=== PATIENT | female | born 1940 | race Caucasian/White ===

== ENCOUNTER 2019-02-15 15:14 | Inpatient (IN) | payer OTHER, MEDICARE ==
[~2019-02-15] VITALS: Ht 157.5 cm; Wt 61.2 kg
[~2019-02-15 15:14] MED LIST changes: -ACET325 PO; -Aspir 8181 MG PO; -CARVEDILOL3.125 MG PO; -CEFU250T47 PO; -DOCUSATE SODIU1 EACH PO; -MIRALAX119 G1 PO; -Nortriptyline H25 MG PO; -POTA10T PO; -Percocet 5-3251 EACH PO; -Prinivil10 MG PO; -VITAMIN D310000 UNI1 PO
[2019-02-15 15:53] LABS: BASOPHILS ABSOLUTE AUTO 0.07 K/mm3 (0.00-0.23); BASOPHILS PERCENT AUTO 1 % (0-2); EOSINOPHILS ABSOLUTE AUTO 0.03 K/mm3 (0.00-0.68); EOSINOPHILS PERCENT AUTO 0 % (0-6); Hematocrit 44.6 % (33.0-51.0); Hemoglobin 14.5 g/dL (11.5-16.0); IMMATURE GRAN ABSOLUTE AUTO 0.03 K/mm3 (0.00-0.10); IMMATURE GRAN PERCENT AUTO 0 % (0-1); LYMPHOCYTES ABSOLUTE AUTO 0.76 K/mm3 (0.84-5.20); LYMPHOCYTES PERCENT AUTO 9 % (21-46); MONOCYTES ABSOLUTE AUTO 0.58 K/mm3 (0.16-1.47); MONOCYTES PERCENT AUTO 7 % (4-13); Mean Corpuscular HGB 32.8 pg (26.0-34.0); Mean Corpuscular HGB Conc 32.5 g/dL (31.5-36.5); Mean Corpuscular Volume 101 fL (80-100); Mean Platelet Volume 9.6 fL (9.1-12.4); NEUTROPHILS ABSOLUTE AUTO 6.67 K/mm3 (1.96-9.15); NEUTROPHILS PERCENT AUTO 82 % (41-73); Platelet Count 260 K/mm3 (150-400); RDW Coefficient Variation 14.2 % (11.7-14.2); RDW Standard Deviation 52.6 fL (35.1-46.3); Red Blood Cell Count 4.42 M/mm3 (3.80-5.20); White Blood Cell Count 8.14 K/mm3 (4.00-11.30)
[2019-02-15 16:21] LABS: Albumin, Blood 3.5 g/dL (3.4-5.0); Bilirubin, Total 0.6 mg/dL (0.1-1.0); Bun/Creatinine Ratio 22.2 (12.0-20.0); Calcium, Blood 9.2 mg/dL (8.5-10.1); Creatinine, Blood 1.71 mg/dL (0.40-1.00); Globulin, Blood 3.5 g/dL (2.2-4.0); Potassium, Blood 3.9 mmol/L (3.5-5.5)
[2019-02-15 17:08] LABS: Troponin I 0.686 ng/mL (0.000-0.040)
[2019-02-15] MEDS ORDERED: Aspir 8181 MG PO (18:00)
[2019-02-15] MEDS ORDERED: VITAMIN D310000 UNI1 PO (18:02)
[2019-02-15] MEDS ORDERED: CARVEDILOL3.125 MG PO (18:02)
[2019-02-15] MEDS ORDERED: Prinivil10 MG PO (18:03)
[2019-02-15] MEDS ORDERED: Nortriptyline H25 MG PO (18:04)
[2019-02-15] MEDS ORDERED: Percocet 5-3251 EACH PO (18:04)
--- NOTE | 2019-02-15 21:39 | NUR ---
UA OBTAINED AND SENT, PENDING RESULTS. PT VOIDED APPROX 700ML CONCENTRATED URINE AFTER X3 ATTEMPTS TO VOID W/O SUCCESS. BLADDER SCAN DONE TO CHECK FOR RETENTION AND PVR WAS 500 MLS. WILL ASSESS PRELIM UA RESULTS AND ALERT MD. PT DENIES ABDO/BLADDER PAIN, PRESSURE OR SENSATION OF NEEDING TO FURTHER VOID. IVF INFUSING AND TOLERATING PO LIQUIDS.
[2019-02-15 21:53] LABS: Bilirubin, Urine Neg (Neg); Blood, Urine Neg (Neg); Color, Urine Yellow (P-Yellow); Glucose Qualitative, Urine Neg (Neg); Ketones, Urine 1+ (Neg); Leukocyte Esterase, Urine 3+ (Neg); Nitrite, Urine Neg (Neg); Protein, Urine Neg (Neg); Urobilinogen, Urine NORM (Normal)
[2019-02-15 22:00] LABS: Appearance, Urine Hazy (Clear)
[2019-02-15 22:01] LABS: White Blood Cells, Urine 50-100 /hpf (0-5)
[2019-02-15 22:02] LABS: Bacteria Mod /hpf; Red Blood Cells, Urine 0-2 /hpf (0-2); Squamous Epithelial Cells Few /hpf (Few)
--- NOTE | 2019-02-15 22:17 | NUR ---
RANI (GAMES DEALER) MADE AWARE OF PVR 500 MLS AND POSSIBLE UTI PER URINE SPECIMEN. NO NEW ORDERS AT THIS TIME ACCEPT TO MONITOR FOR CONTINUED RETENTION AND ALERT MD IF REMAINS AN ISSUE. RANI SPECULATES WHETHER RETENTION MAY BE SECONDARY TO NARCOTICS D/Y PT RECENTLY ACCIDENTALLY MIXING UP PERCOCET AND OXYCONTIN DOSE FREQUENCIES. WCTM AND ALERT HOSPITALIST PRN.
--- NOTE | 2019-02-15 22:48 | NUR ---
CRITICAL TROPONIN NOW 1.05 (WAS 0.685). RANI ALERTED AND STATED IT'S LIKELY DEMAND ISCHEMIA GIVEN PT REMAINS ASYMPTOMATIC OF CARDIAC DISTRESS AND HAS DECREASED KIDNEY FUNCTION. NO NEW ORDERS RECIEVED AT THIS TIME. WILL CONTINUE TO MONITOR FOR CHANGES/WORSENING.
--- NOTE | 2019-02-16 01:17 | NUR ---
BLADDER SCAN NOW 780 MLS AFTER PT ATTEMPTED TO VOID AGAIN W/O SUCCESS. RANI (REMARKETING MANAGER) ALERTED AND NEW ORDER RECIEVED FOR KEARNEY INSERTION FOR RETENTION ISSUES W/DAY MD TO REEVALUATE CONTINUED NEED. 14FR. INDWELLING KEARNEY INSERTED AT 0110 W/STERILE TECHNIQUE MAINTAINED. PT'S LOIDA AREA APPEARS PINK AND SWOLLEN W/PT REPORT OF TENDERNESS R/T SHINGLES. SHE HAD DIFFICULTY RELAXING AND GETTING INTO POSITION FOR KEARNEY INSERTION R/T PELVIC PAIN SO X3 STAFF WERE REQUIRED AND KEARNEY INSERTION WASN'T EASY. URINE SPECIMEN WAS OBTAINED AND SENT PER PROTOCOL. PT REPORTED SOME RELIEF W/BLADDER DECOMPRESSION. WCTM CLOSELY.
[2019-02-16 01:20] LABS: Source, Urine Catheter
[2019-02-16 01:23] LABS: Appearance, Urine Clear (Clear); Bilirubin, Urine Neg (Neg); Blood, Urine 1+ (Neg); Color, Urine Yellow (P-Yellow); Glucose Qualitative, Urine Neg (Neg); Ketones, Urine Neg (Neg); Leukocyte Esterase, Urine Neg (Neg); Nitrite, Urine Neg (Neg); Protein, Urine Neg (Neg); Specific Gravity, Urine 1.015 (1.003-1.022); Urobilinogen, Urine NORM (Normal)
[2019-02-16 01:31] LABS: Red Blood Cells, Urine 0-2 /hpf (0-2); Squamous Epithelial Cells Not Seen /hpf (Few); White Blood Cells, Urine 0-2 /hpf (0-5)
[2019-02-16 01:32] LABS: Bacteria Few /hpf
--- NOTE | 2019-02-16 04:07 | NUR ---
SUMMARY: A/OX4 BUT FORGETFUL AT TIMES AND HAS SET OFF BED ALARM TO USE TOILET. SHE'D HAD DIFFICULTY VOIDING, ONLY SUCCESSFULLY GOING ONCE W/MULTI FAILED ATTEMPTS AND RETENTION OBSERVED. BLADDER SCANS SHOWED 500-780 MLS RETAINED. RANI MADE AWARE W/KEARNEY RX'D AND INSERTED FOR SOME IMPROVEMENT IN PELVIC PAIN. 2ND UA OBTAINED AND SENT POST KEARNEY INSERTION AND NO S/S UTI OBSERVED. SHE WAS MEDICATED W/OXYCODONE X2 DOSES AND TYLENOL X1 DOSE FOR PERSISTENT GROIN PAIN SHE RELATES TO SHINGLES. PT ALSO REPORTED THAT LOIDA AREA IS PINK, SWOLLEN AND TENDER R/T POST HERPATIC ISSUES FROM SHINGLES, NO ACTIVE OUTBREAK OBSERVED. TROPONINS INCREASED THIS SHIFT, NOW 1.05 (WAS 0.685) BUT RANI STATED IT WAS LIKELY DEMAND ISCHEMIA R/T DEHYDRATION, DECREASED RENAL FUNCTION AND PT REMAINING ASYMPTOMATIC OF CARDIAC DISTRESS W/NORMAL EKG IN ER. IVF INFUSING AND PO FLUIDS ENCOURAGED. CLONUS WAS ALSO OBSERVED TO X4 EXT'S. SHE REPORTS THIS IS NEW POST FALLING AT HOME BUT CT'S WERE (-) FOR ACUTE FINDINGS. IT APPEARS WORSE W/AMBULATION W/PT REPORTING LEGS "FEEL LIKE BUCKLING" AND "PRINCIPAL CLERK GIVE OUT". 2P ASSIST W/FWW AND GAIT BELT UTILISED AND FALL PREC'S IN PLACE. RANI MADE AWARE OF THESE OBSERVATIONS AND NO NEW ORDERS WERE RECIEVED EXCEPT TO ENSURE DAY STAFF ARE AWARE. BP WAS STABLE T/O NOCTE, WAS SBP 100'S-130'S BUT NOW SBP 90'S THIS AM. SHE'S DENIED BEING LIGHTHEADED/DIZZY THOUGH AND HAS BEEN ASYMPTOMATIC OF ANY POSSIBLE ORTHO HYPOTENSION. PT REMAINS NSR W/HR 70'S-80'S BPM PER TELEMETRY. NO ACUTE CHANGES, VSS/AFEBRILE. WCTM AND REPORT TO DAY RN.
[2019-02-16 04:59] LABS: Hematocrit 36.3 % (33.0-51.0); Hemoglobin 11.7 g/dL (11.5-16.0); Mean Corpuscular HGB 32.8 pg (26.0-34.0); Mean Corpuscular HGB Conc 32.2 g/dL (31.5-36.5); Mean Corpuscular Volume 102 fL (80-100); Mean Platelet Volume 9.5 fL (9.1-12.4); Platelet Count 209 K/mm3 (150-400); RDW Coefficient Variation 14.3 % (11.7-14.2); RDW Standard Deviation 53.2 fL (35.1-46.3); Red Blood Cell Count 3.57 M/mm3 (3.80-5.20); White Blood Cell Count 6.47 K/mm3 (4.00-11.30)
[2019-02-16 05:20] LABS: Bun/Creatinine Ratio 20.8 (12.0-20.0); Calcium, Blood 7.8 mg/dL (8.5-10.1); Creatinine, Blood 1.3 mg/dL (0.40-1.00); Potassium, Blood 3.3 mmol/L (3.5-5.5)
--- NOTE | 2019-02-16 19:19 | NUR ---
SHIFT SUMMARY PT UP TO BATHROOM WITH 1 PERSON ASSIST USING FWW. REPORTS PAIN TO GROIN AREA AND "INSIDE MY PEE HOLE" REPORTS PAIN IS CHRONIC. FAMILY AT BEDSIDE PART OF THE DAY. STATES ITS VERY HARD TO SIT UP DUE TO PAIN AND THE BED IS UNCOMFORTABLE DESPITE AN EGG CRATE PLACED FOR COMFORT SO IT IS HARD TO GET A COMFORTABLE POSITION. HOPES TO GO HOME TOMORROW. DENIES FEELING DIZZY OR LIGHTHEADED WITH SITTING UP.
[2019-02-17 04:42] LABS: BASOPHILS ABSOLUTE AUTO 0.05 K/mm3 (0.00-0.23); BASOPHILS PERCENT AUTO 1 % (0-2); EOSINOPHILS ABSOLUTE AUTO 0.16 K/mm3 (0.00-0.68); EOSINOPHILS PERCENT AUTO 3 % (0-6); Hematocrit 39.3 % (33.0-51.0); Hemoglobin 12.7 g/dL (11.5-16.0); IMMATURE GRAN ABSOLUTE AUTO 0.02 K/mm3 (0.00-0.10); IMMATURE GRAN PERCENT AUTO 0 % (0-1); LYMPHOCYTES ABSOLUTE AUTO 0.71 K/mm3 (0.84-5.20); LYMPHOCYTES PERCENT AUTO 13 % (21-46); MONOCYTES ABSOLUTE AUTO 0.61 K/mm3 (0.16-1.47); MONOCYTES PERCENT AUTO 11 % (4-13); Mean Corpuscular HGB 32.8 pg (26.0-34.0); Mean Corpuscular HGB Conc 32.3 g/dL (31.5-36.5); Mean Corpuscular Volume 102 fL (80-100); Mean Platelet Volume 9.6 fL (9.1-12.4); NEUTROPHILS ABSOLUTE AUTO 4.09 K/mm3 (1.96-9.15); NEUTROPHILS PERCENT AUTO 73 % (41-73); Platelet Count 208 K/mm3 (150-400); RDW Coefficient Variation 14.2 % (11.7-14.2); RDW Standard Deviation 52.8 fL (35.1-46.3); Red Blood Cell Count 3.87 M/mm3 (3.80-5.20); White Blood Cell Count 5.64 K/mm3 (4.00-11.30)
[2019-02-17 05:16] LABS: Alanine Aminotransfer (ALT/SGP 33 U/L (12-78); Albumin, Blood 2.8 g/dL (3.4-5.0); Alk Phos 48 U/L (50-136); Anion Gap 6 mmol/L (6-16); Aspartate Aminotrans (AST/SGOT 40 U/L (12-37); Bilirubin, Total 0.2 mg/dL (0.1-1.0); Blood Urea Nitrogen 12 mg/dL (8-24); Bun/Creatinine Ratio 13.6 (12.0-20.0); CO2, Blood 21 mmol/L (21-32); Calcium, Blood 8.3 mg/dL (8.5-10.1); Chloride, Blood 119 mmol/L (98-108); Creatinine, Blood 0.88 mg/dL (0.40-1.00); Globulin, Blood 2.7 g/dL (2.2-4.0); Glomerular Filtration Rate >60 (60-); Glucose, Blood 87 mg/dL (70-99); Potassium, Blood 3.5 mmol/L (3.5-5.5); Sodium, Blood 146 mmol/L (136-145); Total Protein, Blood 5.5 g/dL (6.4-8.2); Troponin I 0.438 ng/mL (0.000-0.040)
--- NOTE | 2019-02-17 06:00 | NUR ---
SHIFT SUMMARY A/O, ABLE TO MAKE NEEDS KNOWN. COOPERATIVE WITH CARE. CALLS AND ANSWERS QUESTIONS APPROPRIATLEY. C/O PAIN/DISCOMFORT X1; MEDICATED PER EMAR. APPEARED TO REST MUCH OF SHIFT. NO ACUTE CHANGES OVERNIGHT. TELE RUNNING SR @ 68 PER PCU PYTHON CONSULTANT. BED REAMINS IN LOWEST POSITION. CALL LIGHT AND BELONINGS WITHIN REACH. WCTM. REPORT TO ONCYIMI RN.
[2019-02-17 13:16] LABS: Influenza A Negative (NEGATIVE); Influenza B Negative (NEGATIVE)
--- NOTE | 2019-02-17 18:02 | NUR ---
CRISTIAN SUMMARY PT UPSET THIS AFTERNOON AND IN TEARS WHEN SHE REALIZED MD WANTED TO KEEP HER ANOTHER NIGHT DESPITE BEING TOLD THIS MORNING BY MD SHE WAS STAYING ANOTHER NIGHT. CONTINUES TO HAVE PAIN TO GROIN AREA AND INTERNALLY WHICH IS HARD TO FIND A COMFORTABLE SPOT ON HER BED. STARTED HER OXYCONTIN AT NOON. APPEARS LESS DISTRESSED BUT REPORTS PAIN REMAINS THE SAME. MD NOTIFIED OF BLOOD PRESSURES REMAINING HIGH DESPITE MEDS. NEW ORDERS GIVEN. KEARNEY REMOVED THIS MORNING AND HAS BEEN VOIDING WELL SINCE. BLADDER SCANNED TWICE POST VOIDS WITH 203 AND 173 RESPECTIVELY. REPORTS NO DIFFICULTY URINATING OR FEELING LIKE SHE ISN'T EMPTYING HER BLADDER FULLY.
[2019-02-18 05:18] LABS: BASOPHILS ABSOLUTE AUTO 0.05 K/mm3 (0.00-0.23); BASOPHILS PERCENT AUTO 1 % (0-2); EOSINOPHILS PERCENT AUTO 1 % (0-6); Hematocrit 44.5 % (33.0-51.0); Hemoglobin 14.9 g/dL (11.5-16.0); IMMATURE GRAN ABSOLUTE AUTO 0.02 K/mm3 (0.00-0.10); IMMATURE GRAN PERCENT AUTO 0 % (0-1); LYMPHOCYTES ABSOLUTE AUTO 0.61 K/mm3 (0.84-5.20); LYMPHOCYTES PERCENT AUTO 6 % (21-46); MONOCYTES ABSOLUTE AUTO 0.95 K/mm3 (0.16-1.47); MONOCYTES PERCENT AUTO 9 % (4-13); Mean Corpuscular HGB 33.2 pg (26.0-34.0); Mean Corpuscular HGB Conc 33.5 g/dL (31.5-36.5); Mean Platelet Volume 9.7 fL (9.1-12.4); NEUTROPHILS ABSOLUTE AUTO 8.64 K/mm3 (1.96-9.15); NEUTROPHILS PERCENT AUTO 83 % (41-73); Platelet Count 220 K/mm3 (150-400); RDW Coefficient Variation 13.5 % (11.7-14.2); RDW Standard Deviation 49.6 fL (35.1-46.3); Red Blood Cell Count 4.49 M/mm3 (3.80-5.20); White Blood Cell Count 10.37 K/mm3 (4.00-11.30)
[2019-02-18 05:22] LABS: Mean Corpuscular Volume 99 fL (80-100)
[2019-02-18 05:46] LABS: Alanine Aminotransfer (ALT/SGP 36 U/L (12-78); Albumin/Globulin Ratio 0.9 (0.8-1.8); Alk Phos 58 U/L (50-136); Anion Gap 6 mmol/L (6-16); Aspartate Aminotrans (AST/SGOT 43 U/L (12-37); Bilirubin, Total 0.4 mg/dL (0.1-1.0); Blood Urea Nitrogen 6 mg/dL (8-24); Bun/Creatinine Ratio 8.3 (12.0-20.0); CO2, Blood 26 mmol/L (21-32); Calcium, Blood 8.5 mg/dL (8.5-10.1); Chloride, Blood 107 mmol/L (98-108); Creatinine, Blood 0.72 mg/dL (0.40-1.00); Globulin, Blood 3.2 g/dL (2.2-4.0); Glomerular Filtration Rate >60 (60-); Glucose, Blood 111 mg/dL (70-99); Potassium, Blood 3.2 mmol/L (3.5-5.5); Sodium, Blood 139 mmol/L (136-145); Total Protein, Blood 6.2 g/dL (6.4-8.2)
--- NOTE | 2019-02-18 07:27 | NUR ---
SHIFT SUMMARY A/O, ABLE TO MAKE NEEDS KNOWN. COOPERATIVE WITH CARE. CALLS AND ANSWERS QUESTIONS APPROPRIATELY. C/O PAIN/DISCOMFORT TO GROIN RATED 7/10; MEDICATED PER EMAR. APPEARED TO REST MUCH OF NIGHT. UP INDEPENDENTLY WITH FWW TO BATHROOM; STEADY GAIT. HYPERTENSIVE THIS AM; MEDICATED WITH ATIVAN, WHICH APPEARED TO HAVE HELPED. ALL OTHER VITALS WNL. BED IN LOWEST POSITION. CALL LIGHT AND BELONGINGS WITHIN REACH. CONTINUED TO MONITOR OVERNIGHT. REPORT GIVEN TO ONCOMING RN.
[2019-02-18] MEDS ORDERED: ACET325 PO (11:25)
[2019-02-18] MEDS ORDERED: DOCUSATE SODIU1 EACH PO (11:26)
[2019-02-18] MEDS ORDERED: CEFU250T47 PO (11:27)
[2019-02-18] MEDS ORDERED: MIRALAX119 G1 PO (11:27)
[2019-02-18] MEDS ORDERED: POTA10T PO (11:28)
--- NOTE | 2019-02-18 13:08 | NUR ---
SHIFT SUMMARY/DC PT HAS HAD NO ACUTE CHANGES THIS SHIFT, MEDICATED PER MAR FOR PAIN, REVIEWED DC INSTRUCTIONS W/PT & SPOUSE, BOTH VERBALIZED UNDERSTANDING, PT WAS TRANSPORTED VIA W/C TO DC IN PRIVATE VEHICLE @ 1230.
== END 2019-02-18 12:42 | disposition home or self-care (01) | DRG 280 ==
LOC: ER 15:14 → MEDS 15:15
PROVIDERS: Internal Medicine; Nurse Practitioner Acute Care; Physician Assistant; ADMIT Family Medicine
DX: I95.1 Orthostatic hypotension (principal); J18.9 Pneumonia, unspecified organism; I21.A1 Myocardial infarction type 2; N17.9 Acute kidney failure, unspecified; F11.20 Opioid dependence, uncomplicated; J98.11 Atelectasis; E86.9 Volume depletion, unspecified; I12.9 Hypertensive chronic kidney disease with stage 1 through stage 4 chronic kidney disease, or unspecified chronic kidney disease; R82.71 Bacteriuria; G89.4 Chronic pain syndrome; I67.9 Cerebrovascular disease, unspecified; F17.210 Nicotine dependence, cigarettes, uncomplicated; W19.XXXA Unspecified fall, initial encounter; T40.605A Adverse effect of unspecified narcotics, initial encounter; N18.2 Chronic kidney disease, stage 2 (mild); G31.84 Mild cognitive impairment of uncertain or unknown etiology; B96.5 Pseudomonas (aeruginosa) (mallei) (pseudomallei) as the cause of diseases classified elsewhere
CPT/HCPCS: 36415; 70450; 71045; 71046; 72125; 74176; 80048; 80053; 81001; 83605; 83735; 84484; 85025; 85027; 85379; 87040; 87077; 87086; 87186; 87804; 93005; 93010; 93306; 96360; 96361; 96372; 96374; 96376; 97116; 97162; 97165; 97530; 97535; 99285-25; G0378; J0696; J1650; J7030; J7040

== ENCOUNTER → 2019-02-15 | Outpatient (CLI) | payer OTHER, MEDICARE ==
[~2019-02-15] MED LIST: ACET325 PO; ACYC800 PO; ANTIVIRAL; ASCO500 PO; Aspir 8181 MG PO; B Complex-Foli1 EACH PO; CARVEDILOL3.125 MG PO; CEFU250T47 PO; CYCL10 PO; DOCUSATE SODIU1 EACH PO; GABAPENTIN600 MG PO; GLUCHON PO; LEVFLO500 PO; LIDO5TO TOP; MIRALAX119 G1 PO; NAPR500 PO; NITR100CA PO; NORT10 PO; Nortriptyline H25 MG PO; ONDA4ODT MM; OXYACE5T PO; OXYC10ER PO; OXYC5 PO; POTA10T PO; PROM25 PO; Percocet 5-3251 EACH PO; Prinivil10 MG PO; THERA1 EACH PO; VITAMIN D310000 UNI1 PO
[2019-02-15 16:08] LABS: BASOPHILS ABSOLUTE AUTO 0.08 K/mm3 (0.00-0.23); BASOPHILS PERCENT AUTO 1 % (0-2); EOSINOPHILS ABSOLUTE AUTO 0.04 K/mm3 (0.00-0.68); EOSINOPHILS PERCENT AUTO 0 % (0-6); Hematocrit 43.9 % (33.0-51.0); Hemoglobin 14.7 g/dL (11.5-16.0); IMMATURE GRAN ABSOLUTE AUTO 0.04 K/mm3 (0.00-0.10); IMMATURE GRAN PERCENT AUTO 0 % (0-1); LYMPHOCYTES ABSOLUTE AUTO 0.81 K/mm3 (0.84-5.20); LYMPHOCYTES PERCENT AUTO 9 % (21-46); MONOCYTES ABSOLUTE AUTO 0.65 K/mm3 (0.16-1.47); MONOCYTES PERCENT AUTO 7 % (4-13); Mean Corpuscular HGB 33.1 pg (26.0-34.0); Mean Corpuscular HGB Conc 33.5 g/dL (31.5-36.5); Mean Corpuscular Volume 99 fL (80-100); NEUTROPHILS ABSOLUTE AUTO 7.56 K/mm3 (1.96-9.15); NEUTROPHILS PERCENT AUTO 82 % (41-73); Platelet Count 286 K/mm3 (150-400); RDW Coefficient Variation 14.3 % (11.7-14.2); RDW Standard Deviation 51.9 fL (35.1-46.3); Red Blood Cell Count 4.44 M/mm3 (3.80-5.20); White Blood Cell Count 9.18 K/mm3 (4.00-11.30)
[2019-02-15 16:18] LABS: Albumin, Blood 3.7 g/dL (3.4-5.0); Albumin/Globulin Ratio 1.1 (0.8-1.8); Bilirubin, Total 0.6 mg/dL (0.1-1.0); Bun/Creatinine Ratio 18.3 (12.0-20.0); Calcium, Blood 10.1 mg/dL (8.5-10.1); Creatinine, Blood 2.18 mg/dL (0.40-1.00); Globulin, Blood 3.4 g/dL (2.2-4.0); Potassium, Blood 4.1 mmol/L (3.5-5.5); Total Protein, Blood 7.1 g/dL (6.4-8.2)
== END ==
LOC: LAB SHORT 16:04 → LAB EV 16:04
PROVIDERS: Physician Assistant
DX: G81.90 Hemiplegia, unspecified affecting unspecified side (principal)
CPT/HCPCS: 80053; 85025

== ENCOUNTER → 2021-03-09 | Outpatient (CLI) | payer OTHER, MEDICARE ==
[~2021-03-09] MED LIST changes: +ACET325 PO; +Aspir 8181 MG PO; +CARVEDILOL3.125 MG PO; +CEFU250T47 PO; +DOCUSATE SODIU1 EACH PO; +MIRALAX119 G1 PO; +Nortriptyline H25 MG PO; +POTA10T PO; +Percocet 5-3251 EACH PO; +Prinivil10 MG PO; +VITAMIN D310000 UNI1 PO
[2021-03-09 10:55] LABS: Source, Urine Clean Catch
[2021-03-09 11:07] LABS: Appearance, Urine Cloudy (Clear); Bilirubin, Urine Neg (Neg); Blood, Urine Neg (Neg); Color, Urine Yellow (P-Yellow); Glucose Qualitative, Urine Neg (Normal); Ketones, Urine Neg (Neg); Leukocyte Esterase, Urine Neg (Neg); Nitrite, Urine Neg (Neg); Protein, Urine Neg (Neg); Urobilinogen, Urine NORM (Normal)
[2021-03-09 11:08] LABS: Bacteria Not Seen /hpf; Calcium Oxalate Crystals Many /hpf; Red Blood Cells, Urine Not Seen /hpf (0-2); Squamous Epithelial Cells Mod /hpf (Few); White Blood Cells, Urine Not Seen /hpf (0-5)
== END | disposition home or self-care (01) ==
LOC: LAB SHORT 09:00
PROVIDERS: Family Medicine
DX: R35.0 Frequency of micturition (principal)
CPT/HCPCS: 81001

== ENCOUNTER 2021-09-06 18:59 | Inpatient (IN) | payer OTHER, MEDICARE ==
[~2021-09-06] VITALS: Ht 157.5 cm; Wt 62.8 kg
[~2021-09-06 18:59] MED LIST changes: -B Complex-Foli1 EACH PO; -DOCUSATE SODIU1 EACH PO; +DOCUZEN 8.6-501 EACH PO; +MULVITA PO; -THERA1 EACH PO; -VITAMIN D310000 UNI1 PO; +VITAMIN D5000 UNIT PO; +Vitamin B Comple1 EA PO
[2021-09-06 19:30] LABS: BASOPHILS ABSOLUTE AUTO 0.04 K/mm3 (0.00-0.23); BASOPHILS PERCENT AUTO 0 % (0-2); EOSINOPHILS PERCENT AUTO 0 % (0-6); Hematocrit 48.9 % (33.0-51.0); Hemoglobin 15.8 g/dL (11.5-16.0); IMMATURE GRAN ABSOLUTE AUTO 0.08 K/mm3 (0.00-0.10); IMMATURE GRAN PERCENT AUTO 0 % (0-1); LYMPHOCYTES ABSOLUTE AUTO 0.58 K/mm3 (0.84-5.20); LYMPHOCYTES PERCENT AUTO 3 % (21-46); MONOCYTES ABSOLUTE AUTO 1.27 K/mm3 (0.16-1.47); MONOCYTES PERCENT AUTO 7 % (4-13); Mean Corpuscular HGB 28.1 pg (26.0-34.0); Mean Corpuscular HGB Conc 32.3 g/dL (31.5-36.5); Mean Corpuscular Volume 87 fL (80-100); Mean Platelet Volume 10.5 fL (9.1-12.4); NEUTROPHILS ABSOLUTE AUTO 16.58 K/mm3 (1.96-9.15); NEUTROPHILS PERCENT AUTO 90 % (41-73); Platelet Count 420 K/mm3 (150-400); RDW Standard Deviation 50.9 fL (35.1-46.3); Red Blood Cell Count 5.62 M/mm3 (3.80-5.20); White Blood Cell Count 18.55 K/mm3 (4.00-11.30)
[2021-09-06 19:42] LABS: Albumin, Blood 3.4 g/dL (3.4-5.0); Albumin/Globulin Ratio 0.7 (0.8-1.8); Bilirubin, Total 0.5 mg/dL (0.1-1.0); Calcium, Blood 9.9 mg/dL (8.5-10.1); Creatinine, Blood 1.31 mg/dL (0.40-1.00); Globulin, Blood 4.6 g/dL (2.2-4.0); Potassium, Blood 3.2 mmol/L (3.5-5.5)
[2021-09-06 20:33] LABS: Source, Urine Straight Cath
[2021-09-06 20:39] LABS: Bilirubin, Urine Neg (Neg); Blood, Urine 5+ (Neg); Glucose Qualitative, Urine Neg (Neg); Ketones, Urine Neg (Neg); Leukocyte Esterase, Urine 1+ (Neg); Nitrite, Urine Neg (Neg); Protein, Urine 3+ (Neg); Specific Gravity, Urine 1.025 (1.003-1.022); Urobilinogen, Urine NORM (Normal)
[2021-09-06 20:43] LABS: Thyroid Stimulating Hormone 2.87 uIU/mL (0.360-4.800)
[2021-09-06 20:47] LABS: Appearance, Urine Hazy (Clear); Color, Urine Pale Yellow (P-Yellow)
[2021-09-06 20:50] LABS: Amorphous Light (0-Heavy); Granular Casts 0-2 /lpf (0); Hyaline Casts 0-2 /lpf (0-2)
[2021-09-06 20:52] LABS: Bacteria Many /hpf; Red Blood Cells, Urine 0-2 /hpf (0-2); Squamous Epithelial Cells Rare /hpf (Few)
[2021-09-06 20:55] LABS: U Amphetamine Screen Not Detected; U Barbituate Screen Not Detected; U Benzodiazapine Screen Not Detected; U Cocaine Screen Not Detected; U Methamphetamine Screen Not Detected
[2021-09-06 20:56] LABS: U Buprenorphine Screen Not Detected; U Cannabinoids Screen Not Detected; U Methadone Screen Not Detected; U Opiates Screen Not Detected; U Oxycodone Screen Not Detected; U Phencyclidine Screen Not Detected; U Propoxyphene Screen Not Detected
[2021-09-06 21:00] LABS: Creatine Kinase MB 7.4 ng/mL (0.0-3.6)
[2021-09-06 21:05] LABS: Creatine Kinase MB Index 0.5 (0.0-4.0)
[2021-09-06 21:19] LABS: Influenza A, PCR NEGATIVE (NEGATIVE); Influenza B, PCR NEGATIVE (NEGATIVE); Resp Syncytial Virus, PCR NEGATIVE (NEGATIVE); SARS-Cov-2 (COVID-19) PCR, MMC NEGATIVE (NEGATIVE)
[2021-09-07 06:18] LABS: Bun/Creatinine Ratio 33.8 (12.0-20.0); Calcium, Blood 8.9 mg/dL (8.5-10.1); Creatinine, Blood 0.89 mg/dL (0.40-1.00); Potassium, Blood 2.9 mmol/L (3.5-5.5)
--- NOTE | 2021-09-07 18:26 | NUR ---
DISCUSSIONS THIS MORNING ABOUT COMFORT CARE NOTICE ON THE POLST. FAMILY AND DOCTOR DDISCUSSED. MOVED TO COMFORT CARE STATUS, WITH SOME MEDS. CURRENTLY ABX AND FLUIDS WITH K+. PT WAS BATHED TODAY. ABLE TO REMOVE MUCH OF SCALEY DIRTY SKIN. STILL VERY RED LOIDA AND GROIN AREA. FAMILY IN ROOM MOST OF DAY. PAIN PATCH PLACED ON RT FROMT SHOULDER. NO OTHER CONCERNS NOTED. BED IN LOW POSITION, CALL LITE IN REACH, BED ALARM ON FOR BRADLY
[2021-09-07] MEDS ORDERED: NORTRIPTYLINE H2511 PO (20:34)
--- NOTE | 2021-09-08 05:52 | NUR ---
MATHEMATICS EDUCATION PROFESSOR SUMMARY PT IS DNR/COMFORT CARE. SHE HAS LITTLE MOTIVATION TO DO ANYTHING AND REFUSED MOST OF HER PM MEDS. SHE IS VERY RESISTANT TO CARE. SISTER STAYED AT BEDSIDE. PT IS INCONTINENT - ATTENDS IN PLACE. SHE ADMITS TO PAIN BUT REFUSES TO TAKE ANY MEDICATION. 1/2 NS WITH POTASSIUM CONTINUOUS INFUSION.
--- NOTE | 2021-09-08 10:11 | NUR ---
Pt lying on right side, bed flat. I do not see nonverbal indicators of pain, anxiety, agitation or distress. Family report that pt is refusing all PO meds and only taking bites of food at meal time and sips of fluid. Pt did not wake to conversation near her. Two family members at bedside. They deny needs. Spent some time educating on nonverbal pain indicators to report. Pt has a duragesic patch on with increase in dose yesterday. Family states pt doesn't report specific or localized pain but says she feels "like crap all over", at times. Pal Care to follow for s/s management.
--- NOTE | 2021-09-08 11:30 | NUR ---
PT SHAN GAGGING ON SPUTUM, FAMILY CALLED ME TO ROOM. THEY ARE ASSITING HER WITH SPITTING IN KLEENEX. SET UP SUCTION FOR PT TO CLEAR SIDE AND AROUND HER MOUTH BETTER. PT OBJECTED AND TOLD ME TO STOP. WAS ABLE TO CLEAR SOME THICK MUCOUS BEFORE PT OBJECTED. PT HAS SCAPOLOMINE PATCH. AFTER MOUTH CLEARED, ASSISTED PT TO SIP WATER. RESTING MORE COMFORTABLY NOW. BED IN LOW POSITION, CALL LITE IN REACH, BED ALARM ON FOR SAFETY, FAMILY AT BEDSIDE.
--- NOTE | 2021-09-08 15:04 | NUR ---
PT AGREED TO ADDITIONAL PAIN MED. HAS BEEN ADAMENTLY REFUSING, BUT NOW AGREES TO TRY. MORPHINE SHOWS ALLERGY, DIARRHEA. SPOKE TO FAMILY AND TO PT. DENIES ANY ADVERSE REACTION. SPOKE TO DR LAWLER. HE OKAYED TO GIVE.
--- NOTE | 2021-09-08 18:09 | NUR ---
PT ON COMFORT CARE, FAMILY AT BEDSIDE T/O DAY. PT FINALLY AGREED TO ACCEPT SOME ADDL PAIN MED, ROXANOL STARTED. FIRST DOSE 5 MG. 2ND DOSE 10 MG. THIS PROVIDES BETTER COVERAGE. AFTER LAST DOSE, HAS BEEN RESTING COMFORTABLY. STILL TURNS SELF REGULARLY IN BED. AWAKENS TO TALKING OR LIGHT TOUCH. RESP NOW EASY, UNLABORED. FAMILY STATES SHE BEGAN TO TALK MORE CLEARLY THIS DK. BED IN LOW POSITION, CALL LITE IN REACH, BED ALARM ON FOR SAFETY
--- NOTE | 2021-09-09 08:06 | NUR ---
PT IN PAIN. PT UNABLE TO SWALLOW PILLS. IMEDIATELY THREW UP. ABLE TO GIVE WITH WATER. EDUCATED PT ABOUT PAIN AND NAUSEA PILLS. MADE A PLAN FOR THE NIGHT. SPOKE WITH PATIENTS FAMMILY.
--- NOTE | 2021-09-09 08:11 | NUR ---
PT STATING SHE IS IN PAIN. EXPAINED TO PT AND FAMILY THE DIFFERENCE BETWEEN A SCHEDULED AND PRN MED. EXPLAINED TO FAMILY THAT MORE MEDS OF THE PATIENTS WILL NOW BE LIQUID TO HELP HER TAKE THEM. PT STATED THEY UNDERSTOOD. RECHECKED ON PATIENT. PT STATED THAT CURRENT DOSAGE OF ROXANOL IS NOT ENOUGH. LET DAY SHIFT AWARE OF THIS.
--- NOTE | 2021-09-09 14:36 | NUR ---
SHIFT SUMMARY PT RESTING QUIETLY DURING SHIFT REPORT. SISTER AT BS. CURRENTLY ON COMFORT CARE. PT NO LONGER ABLE TO SWALLOW PILLS AND REFUSING TO EAT. INCONTINENT OF BOWEL AND BLADDER. BED BATH GIVEN AND LINEN CHANGED TODAY. MULTIPLE FAMILY IN AND OUT TODAY. MEDICATED FOR C/O PAIN "EVERYWHERE", PER PT AND FAMILY REQUEST. PT TO D/C ON HOSPICE WHEN ARRANGEMENTS MADE. PT SLEPT MOST OF THE DAY TODAY, NOT WANTING TO BE BOTHERED. CALL LT IN REACH.
--- NOTE | 2021-09-09 23:34 | NUR ---
PT irritable startles easily & I found her Fentanyl patch 50 mcg on floor. called MD for 1 x patch order due to narcotic dependant PT on comfort care. DR Yeh gives additional 1 time order. Family at bedside supportive.
--- NOTE | 2021-09-10 02:10 | NUR ---
PT was highly agitated after I found she was missing her 50 mcg duragesic patch. New patch applied & secured. Medicated with roxinol 20 mg sl several times but PT continued agitated until I gave haldol 2 mg IV. Now resting quietly with Sister at bedside.
--- NOTE | 2021-09-10 16:07 | NUR ---
SHIFT SUMMARY PT HAS BEEN SLEEPING SINCE PRIOR TO START OF SHIFT. PT MEDICATED FOR PAIN AND ANXIETY ON POULTRY PICKER, PER PT REQUEST. PT HAS NOT SHOWN ANY S/SX'S OF PAIN OR DISTRESS TO PRESENT. SOME FAMILY HAVE REMAINED IN RM ALL NIGHT AND DAY, AT LEAST SINCE YESTERDAY. PT HAS NOT WOKE TO VERBAL STIMULI OR TO REPOSITIONING. WILL CONTINUE TO MONITOR. FAMILY HAS DENIED NEEDS TO PRESENT.
--- NOTE | 2021-09-10 20:42 | NUR ---
PT opening eyes slightly to voice & touch but minimally responsive since around midnight when aggitation was relieved with rx & new duragesic patch after other patch found on floor bruna narcotic dependent PT. Family at bedside supportive. No oral intake attends dry with Q 2 hr turns .
--- NOTE | 2021-09-11 15:13 | NUR ---
SHIFT SUMMARY COMFORT CARE PT REMAINS NON-RESPONSIVE AGAIN TODAY. BREATHING E/U TO PRESENT. MEDICATED PER FAMILY, FOR POSSIBLE PAIN. NO S/SX'S OF DISTRESS NOTED. DR LAWLER TO TO ASSESS PT AND TALK WITH FAMILY. WILL CONTINUE TO MONITOR.
--- NOTE | 2021-09-11 19:32 | NUR ---
PT resting comfortably with eyes closed. HOB up , room air. Multiple family at bedside.
--- NOTE | 2021-09-12 06:52 | NUR ---
pt CONTINUES WITH PERIODS OF APNEA & NO VERBAL RESPONSE. APPEARS COMFORTABLE. SISTER AT BEDSIDE & SUPPORTIVE.
--- NOTE | 2021-09-12 07:43 | NUR ---
pt has eyes open non verbal. pt repositioned and changed. family at the bedside. pt appears to be comfortable at this time
--- NOTE | 2021-09-12 11:20 | NUR ---
REPOSITIONED THE PATIENT. GAVE ROXINOL FOR PAIN PER FAMILY REQUEST. FENTENYL PATCH REPLACED
--- NOTE | 2021-09-12 15:03 | NUR ---
PT REPOSITIONED. PT MEDICATED FOR PAIN. PT HAS PERIODS OF APNEA. FAMILY IS AT THE BEDSIDE
--- NOTE | 2021-09-12 15:05 | NUR ---
PT APPEARS TO BE COMFOERTABLE AT THIS TIME. PTS FAMILY IS AT [facility] BEDSIDE
--- NOTE | 2021-09-12 17:16 | NUR ---
PT REPOSITIONED AND CHANGED. OPENS HER EYES IS NON VERBAL. GAVE ROXINOL FOR PAIN
--- NOTE | 2021-09-12 17:56 | NUR ---
PT APPEARS TO BE COMFORTABLE AT THIS TIME. FAMILY AT THE BEDSIDE T/O THE DAY. PT HAS PERIODS OF APNEA AT TIMES. PT WAS MEDICATED FOR PAIN/DISCOMFORT T/O THE DAY
--- NOTE | 2021-09-12 18:20 | NUR ---
Met with pt and family at bedside this afternoon. Pt appears comfortable. Both pt's sister and daughter at bedside. They were tearful as they reminisced, but also verbalize feeling grateful pt does not appear to be in any pain. They did mention pt seems to be "hanging on a really long time", stating that her breathing has changed several times over the past 3 days, and they have thought it was her last few breaths on multiple occasions since friday of this week. I reminded them to be sure and take care of themselves as well as being present for their loved one. They assured me they are getting rest, eating and drinking. We prayed together at sister's request. They declined a manager commission at that time. Pt does appear very relaxed with no s/s of discomfort or SOB.
--- NOTE | 2021-09-13 03:54 | NUR ---
SHIFT SUMMARY: COMFORT CARE MEASURES CONTINUED, ROUNDING & TURNING/REPOSITIONING Q2 HOURS- NEW MEPILEX DRESSING APPLIED TO COCCYX TO PREVENT FURTHER BREAKDOWN OF CURRENT BLISTER AND NON BLANCHEABLE COCCYX AREA. PT REMAINS UNRESPONSIVE- PAIN MEDICATIONS ADMINISTERED POST FULL TURNS AND BRIEF CHANGES DUE TO INCREASED DISCOMFORT NOTED- PTS EYES OPEN AND INCREASED SHORTNESS OF BREATH OBSERVED, OCCASIONAL GROANS. CONTINUES TO RESPOND WELL TO PAIN MEDICATION. AT REST SNORING IS PRESENT AND PROLONGED APNEA OBSERVED. FAMILY REMAINS AT BEDSIDE.
--- NOTE | 2021-09-13 09:56 | NUR ---
PT REPOSITIONED. PT MEDICATED FOR COMFORT. FAMILY AT THE BEDSIDE
--- NOTE | 2021-09-13 09:57 | NUR ---
PT MEDICATED FOR COMFORT AND ANXIETY PER DR. ARRIETA PT IS AGINAL BREATHING. APPLIED SCOPALOMIN PATCH FOR SECRETIONS
--- NOTE | 2021-09-13 09:59 | NUR ---
GAVE ATROPIN DROPS FOR SECRTIONS. PT NOW GETTING REPOSITIONED AND BED BATH
--- NOTE | 2021-09-13 12:05 | NUR ---
REPOSITIONED THE PATIENT. FAMILY AT THE BEDSIDE. GAVE ROXINOL FOR COMFORT. GAVE ATROPIN FOR SECRETIONS
--- NOTE | 2021-09-13 13:20 | NUR ---
PT REPOSITIONED. PT HAS AGINAL BREATHING AND MODELING GAVE ROXINO; ATIVAN AND GAVE ATROPINE FOR SECRETIONS
--- NOTE | 2021-09-13 13:45 | NUR ---
PT PASSED, FAMILY AT THE BEDSIDE. CHARGE NURSE MCIKIE KURTZ VERIFIED . DR. CANTU WAS NOTIFIED.
== END 2021-09-13 13:45 | DRG 871 ==
LOC: ER 18:59 → MEDS 19:00
PROVIDERS: Emergency Medicine; Student in an Organized Health Care Education/Training Program; ADMIT Internal Medicine
DX: A41.9 Sepsis, unspecified organism (principal); G92.8 Other toxic encephalopathy; E87.0 Hyperosmolality and hypernatremia; N39.0 Urinary tract infection, site not specified; Z20.822 Contact with and (suspected) exposure to COVID-19; Z66 Do not resuscitate; Z51.5 Encounter for palliative care; E86.0 Dehydration; R65.20 Severe sepsis without septic shock; E87.6 Hypokalemia; I10 Essential (primary) hypertension; F17.210 Nicotine dependence, cigarettes, uncomplicated; Z79.899 Other long term (current) drug therapy; Z71.6 Tobacco abuse counseling; Z88.5 Allergy status to narcotic agent
CPT/HCPCS: 0241U; 36415; 51701; 70450; 71045; 80048; 80053; 81001; 82550; 82553; 83605; 84443; 85025; 87040; 87086; 93005; 93010; 96361-59; 96372; 96374-59; 96375; 96376; 99285-25; A9270; G0378; J0360; J0696; J1630; J1644; J2270; J2405; J3480; J7030; J7042